=== PATIENT | female | born 1965 | race Caucasian/White ===

== ENCOUNTER 2024-04-10 19:58 | Emergency (ER) | payer OTHER ==
[~2024-04-10] VITALS: Ht 158.7 cm; Wt 79.4 kg
[~2024-04-10 19:58] MED LIST: ASPIRIN81 M1 PO; BRILINTA90 M1 PO; CLARITIN10 MG PO; CLEOCIN HCL300 MG PO; FISH OIL CONC1000 M1 PO; HYDR12.5C PO; IRON90 MG PO; LANTUS100 U/ML SC; LIPITOR40 MG PO; LOPRESSOR25 MG PO; MAGNESIUM400 M1 PO; METFORMIN500 MG PO; NEURONTIN300 MG PO; NITROSTAT0.4 MG SL; PRINIVIL20 M1 PO; ULTRAM50 MG PO
[2024-04-10] MEDS ORDERED: METHOCARBAMOL 500 MG TAB PO ONE (23:00)
[2024-04-10] MEDS ORDERED: Ketorolac Tromethamine 60 MG/2 ML VIAL IM ONE (23:00)
[2024-04-10] MEDS ORDERED: METHOCARBAMOL500 M1 PO (23:04)
[2024-04-10] MEDS ORDERED: NAPROXEN250 MG PO (23:04)
== END 2024-04-10 23:22 | disposition home or self-care (01) ==
LOC: ED 19:58
DX: S39.012A Strain of muscle, fascia and tendon of lower back, initial encounter (principal); E66.9 Obesity, unspecified; Z91.030 Bee allergy status; Z88.1 Allergy status to other antibiotic agents; Z79.2 Long term (current) use of antibiotics; Z79.899 Other long term (current) drug therapy; Z79.82 Long term (current) use of aspirin; Z79.4 Long term (current) use of insulin; Z68.30 Body mass index [BMI] 30.0-30.9, adult; W18.09XA Striking against other object with subsequent fall, initial encounter; Y93.89 Activity, other specified; Y92.520 Airport as the place of occurrence of the external cause; Y99.8 Other external cause status